=== PATIENT | male | born 1985 | race Two or more races ===

== ENCOUNTER 2025-03-26 07:09 | Day surgery (SDC) | payer BC ==
[~2025-03-26] VITALS: Ht 182.9 cm; Wt 88.5 kg
[~2025-03-26 07:09] MED LIST: CHOL20004 PO; MISC500C8 PO; MULT-1018 PO; OMEG100062 PO; VITA80009 PO; ZINC30TA6 PO
[2025-03-26 09:35] VITALS: TEMP 97.3
[2025-03-26] MEDS ORDERED: fentaNYL CITRATE 100 MCG/2 ML VL ONE (12:38)
[2025-03-26] MEDS ORDERED: MIDAZOLAM HCL 2MG/2ML 2ml VIAL (1mg/ml) ONE (12:38)
[2025-03-26] MEDS ORDERED: ROCURONIUM 10MG/ML 10ML VIAL IV ONE (12:38)
[2025-03-26] MEDS ORDERED: PROPOFOL 10 MG/ML 20 ML IV ONE (12:38)
[2025-03-26] MEDS ORDERED: METOCLOPRAMIDE HCL 5MG/ml INJ 2ml VIAL ONE (12:39)
[2025-03-26] MEDS ORDERED: LIDOCAINE W/ EPINEPHRINE 1% 20ML VIAL ONE (13:13)
[2025-03-26] MEDS ORDERED: HYDROmorphone HCL 2 MG/ML VL/or syr ONE (13:15)
[2025-03-26] MEDS ORDERED: ALBUTEROL SULFATE 90 MCG MDI IN ONE (13:25)
[2025-03-26] MEDS ORDERED: SUGAMMADEX 200mg/2ml Vial (100MG/ML) IV ONE (13:29)
[2025-03-26 13:58] VITALS: PULSE 94; RESP 14; O2SAT 100
[2025-03-26 14:08] VITALS: PULSE 94; RESP 12; O2SAT 100
[2025-03-26] MEDS ORDERED: METOCLOPRAMIDE HCL 5MG/ml INJ 2ml VIAL IV PRN (14:15)
[2025-03-26] MEDS: hydrALAZINE HCL 20 MG/ML VL ONE (14:15)
[2025-03-26] MEDS ORDERED: ONDANSETRON HCL 4 MG/2 ML VIAL IV PRN (14:15)
[2025-03-26] MEDS: ACETAMINOPHEN IV 100 ML IV ONE (14:16)
[2025-03-26] MEDS: ACETAMINOPHEN IV 1000 MG/100ML (10MG/ML) IV ONE (14:21)
[2025-03-26] MEDS: hydrALAZINE HCL 20 MG/ML VL IV PRN (14:21)
[2025-03-26] MEDS: HYDROmorphone HCL 2 MG/ML VL/or syr IV PRN (15:00)
--- NOTE | 2025-03-26 15:07 | DVHOP ---
DATE OF SURGERY: 03/26/2025 PREOPERATIVE DIAGNOSES: Right shoulder labral tear with rotator cuff tear. POSTOPERATIVE DIAGNOSES: Right shoulder labral tear with rotator cuff tear. PROCEDURES PERFORMED: Right shoulder arthroscopy with debridement of the labrum, rotator cuff debridement, subacromial decompression with acromioplasty. ANESTHESIA: General with interscalene block. BLOOD LOSS: Minimal. COMPLICATIONS: None. IMPLANTS USED: None. PENAL OFFICER: Martin Sibley PA-C INDICATION FOR PROCEDURE: The patient presented to the clinic with a history of chronic right shoulder pain. He had failed thorough nonoperative management. Clinical and radiological evaluation demonstrated partial rotator cuff tear and possible labral tear. Superior labral tear was specifically considered. Surgery in the form of shoulder arthroscopy with rotator cuff repair, possible labral repair, possible subacromial decompression with acromioplasty was discussed with him. Benefits, risks, and treatment alternatives were discussed. Specific complications of surgery such as neurovascular injury, infection, arthrofibrosis, loss of limb or life were discussed. The patient decided to proceed with the surgical option. PROCEDURE IN DETAIL: The patient was identified in the preoperative holding area and the surgical site was marked. The consent was verified. He was brought into the operating room and placed supine on the operating table. General anesthesia was administered and intravenous antibiotics were given. He was brought up into the beach chair position. Beanbag was deflated. All the bony prominences were appropriately padded. His arm was examined under anesthesia and was found to be stable without any evidence of anterior or posterior instability. Sulcus sign was negative. The extremity was now prepped and draped in the usual sterile manner. A timeout was called out to confirm the identity of the patient, the nature of surgery, the site of surgery, the availability of implants, and x-rays and allergies to medications. A standard posterior portal was established. A 30-degree scope was inserted. A standard anterior portal was established, a probe was inserted, and the findings were as follows. * Type 1 superior labral tear, stable. * Intact subscapularis tendon. * Intact biceps tendon. * Partial articular surface rotator cuff tear, approximately 20% of the footprint. * No loose bodies. * Intact articular cartilage. Based on these findings, I decided to do debridement of the labrum as well as the rotator cuff. The superior labrum was stable and did not need any repair. The partial articular-sided rotator cuff tear was debrided with the help of a shaver. A PDS stitch was now inserted to identify the rotator cuff from the bursal side to see if it needs a repair. The subacromial space was entered. The rotator cuff was visualized from the bursal side and was found to have significant fraying, however, no footprint tear was noted. CA ligament was also significantly frayed in the area of subacromial impingement. Downsloping acromion was also noted. Thorough diagnostic arthroscopy was completed. Bursectomy was done. A timmy was utilized to do subacromial decompression and approximately 5-6 mm of anterior edge of the acromion was resected. Irrigation was given. Skin incisions were closed with 3-0 nylon. Sterile dressing was applied. Shoulder sling was applied. DISPOSITION: Good, the patient was extubated and taken to the recovery without any complications. PLAN: The patient is to start early range of motion exercises within 3-5 days. FU in 2 weeks. MD BEVERLY Dunaway/RAOUL/KATHERINE TID: [id number] RECEIPT: [id number] [email or web address]
[2025-03-26 15:58] VITALS: BP 156/99; PULSE 99; RESP 12; O2SAT 97
== END 2025-03-26 16:18 | disposition home or self-care (01) ==
LOC: SUR 07:09
PROVIDERS: ATTEND Orthopaedic Surgery Sports Medicine
DX: S46.011A Strain of muscle(s) and tendon(s) of the rotator cuff of right shoulder, initial encounter (principal); S43.491A Other sprain of right shoulder joint, initial encounter; G89.29 Other chronic pain; S43.431A Superior glenoid labrum lesion of right shoulder, initial encounter; X58.XXXA Exposure to other specified factors, initial encounter; Y93.89 Activity, other specified; Y92.89 Other specified places as the place of occurrence of the external cause; Y99.8 Other external cause status
CPT/HCPCS: 29822; 29826; 64415; J0169; J0360; J1100; J1171; J2250; J2704; J2765; J3010; A4565; J0131